=== PATIENT | female | born 1990 | race African-American/Black ===

== ENCOUNTER → 2021-04-08 | Outpatient (REF) | payer OTHER | LOC: M LAB REF 15:37 | PROVIDERS: ATTEND Nurse Practitioner Family | DX: J04.0 Acute laryngitis (principal) ==

== ENCOUNTER 2021-07-16 08:19 | Emergency (ER) | payer OTHER ==
[~2021-07-16] VITALS: Ht 157.5 cm; Wt 60.3 kg
[2021-07-16] MEDS ORDERED: IBUP200T46 PO (08:25)
[2021-07-16] MEDS ORDERED: VALA1TAB5 PO (08:25)
[2021-07-16] MEDS ORDERED: MORPHINE 4 MG/ML 1ML VIAL/SYRINGE (J2270) IM ONE (11:30)
[2021-07-16] MEDS ORDERED: IBUPROFEN 600MG TAB PO ONE (11:30)
[2021-07-16] MEDS ORDERED: PERC5TAB12 PO ×2 (11:32→13:05)
[2021-07-16 12:22] VITALS: BP 132/83
== END 2021-07-16 12:25 | disposition home or self-care (01) ==
LOC: M ED 08:19
DX: S52.041A Displaced fracture of coronoid process of right ulna, initial encounter for closed fracture (principal); W00.0XXA Fall on same level due to ice and snow, initial encounter; Y92.9 Unspecified place or not applicable; Y93.9 Activity, unspecified; Y99.0 Civilian activity done for income or pay
CPT/HCPCS: 73080; 96372; 99284; J2270

== ENCOUNTER 2021-09-18 11:26 | Emergency (ER) | payer OTHER ==
[~2021-09-18] VITALS: Ht 157.5 cm; Wt 56.4 kg
[~2021-09-18 11:26] MED LIST: IBUP200T46 PO; PERC5TAB12 PO; VALA1TAB5 PO
[2021-09-18 14:54] VITALS: BP 124/78
== END 2021-09-18 14:58 | disposition home or self-care (01) ==
LOC: M ED 11:26
DX: L29.9 Pruritus, unspecified (principal); T50.B95A Adverse effect of other viral vaccines, initial encounter; Z88.6 Allergy status to analgesic agent; Z79.899 Other long term (current) drug therapy

== ENCOUNTER → 2021-09-25 | Outpatient (CLI) | payer OTHER | LOC: M WHC 07:06 | PROVIDERS: ATTEND Plastic Surgery Surgery of the Hand | DX: T85.44XA Capsular contracture of breast implant, initial encounter (principal) ==